=== PATIENT | female | born 1945 ===

== ENCOUNTER 2025-01-26 13:40 | Emergency (ER) | payer MEDICARE, OTHER ==
[~2025-01-26 13:40] MED LIST: Sodium Chloride 0.9% 10 ML Syringe FLUSH PRN
[2025-01-26 14:00] LABS: BASOPHILS ABSOLUTE AUTO 0.03 10^3/uL (0.00-0.50); BASOPHILS PERCENT AUTO 0.4 % (0-1); EOSINOPHILS ABSOLUTE AUTO 0.19 10^3/uL (0.00-1.50); EOSINOPHILS PERCENT AUTO 2.3 % (0-6); IMMATURE GRAN ABSOLUTE AUTO 0.01 10^3/uL (0.00-0.49); IMMATURE GRAN PERCENT AUTO 0.1 % (0.0-4.9); LYMPHOCYTES ABSOLUTE AUTO 1.45 10^3/uL (0.60-5.00); LYMPHOCYTES PERCENT AUTO 17.2 % (24-44); MONOCYTES ABSOLUTE AUTO 0.66 10^3/uL (0.00-1.50); MONOCYTES PERCENT AUTO 7.8 % (0-10); NEUTROPHILS ABSOLUTE AUTO 6.09 x10^3/uL (1.80-8.00); NEUTROPHILS PERCENT AUTO 72.2 % (41-71); PLATELET COUNT,PLT 177 10^3/uL (150-400); RED BLOOD CELL COUNT 4.11 x10^6/uL (4.00-5.50); WHITE BLOOD CELL COUNT,WBC 8.4 10^3/uL (4.0-11.0)
[2025-01-26 14:16] LABS: LACTIC ACID 1.0 mmol/L (0.4-2.0)
[2025-01-26] MEDS: levETIRAcetam 500 MG/5 ML SDV IVPUSH ONE (14:16)
[2025-01-26 14:23] LABS: ALANINE AMINOTRANSFERASE,ALT 21.0 U/L (12-78); ASPARTATE AMNIOTRANSFERASE,AST 19.0 U/L (15-37); BILIRUBIN TOTAL 0.4 mg/dL (0.0-1.0); BLOOD UREA NITROGEN,BUN 19.0 mg/dL (7-18); CARBON DIOXIDE,CO2 30.0 mmol/L (21-32); CHLORIDE,CL 103.0 mEq/L (98-106); CREATININE 1.1 mg/dL (0.6-1.0); EST CRCL DRUG DOSING (CG) 35.22 mL/min; ESTIMATED GFR 51.0 mL/min (>=60); GLUCOSE RANDOM 127.0 mg/dL (75-99); POTASSIUM,K 4.1 mEq/L (3.5-5.0); PROTEIN TOTAL,TP 6.8 g/dL (6.4-8.2); SODIUM,NA 142.0 mEq/L (136-145)
[2025-01-26 14:45] VITALS: BP 126/92; PULSE 60
== END 2025-01-26 15:35 | disposition home or self-care (01) ==
LOC: CC.ED 13:40
DX: G40.909 Epilepsy, unspecified, not intractable, without status epilepticus (principal); I10 Essential (primary) hypertension; K21.9 Gastro-esophageal reflux disease without esophagitis; Z88.6 Allergy status to analgesic agent; Z91.040 Latex allergy status; Z91.048 Other nonmedicinal substance allergy status; Z79.899 Other long term (current) drug therapy
CPT/HCPCS: 36415; 70450; 71045; 80053; 82947; 83605; 85025; 96374; 99284; 99285-25; J1953